=== PATIENT | male | born 1960 | race Caucasian/White ===

== ENCOUNTER → 2021-01-31 10:29 | Outpatient (CLI) | payer BC, SELFPAY ==
--- NOTE | ~2021-01-31 | MR_ITS ---
EXAMINATION: MR shoulder RT wo con DATE: 01/31/2021 12:05 INDICATION: Right shoulder pain TECHNIQUE: Magnetic resonance imaging (MRI) of the right shoulder was performed without intravenous c ontrast. Sequences included axial PD-weighted FS FSE, coronal oblique PD-weighted FS FSE, coronal obl ique T2-weighted FS FSE, sagittal PD-weighted FS FSE, and sagittal T1-weighted SE. COMPARISON: None. FINDINGS: Coracoacromial arch: The acromion undersurface is flat in morphology (type I) with small anterior subacromial spur at the acromial insertion of the otherwise normal coracoacromial ligament. Moderate acromioclavicular osteoa rthritis. Rotator cuff: Severe supraspinatus and anterior infraspinatus tendinopathy. There is a full-thickness tear involvin g the entire supraspinatus tendon and anterior half of the infraspinatus tendon which occurs at the c ritical zone approximately 1-1.5 cm from the greater tuberosity footplate. There is fraying of the te ndon which remains attached to the greater tuberosity. There is severe tendinopathy extending 3 cm me dially from the medial tear margin which is retracted approximately 1.5 cm near the level of the apex of the humeral head. The teres minor tendon is normal. Moderate subscapularis tendinopathy. There is partial thickness intrasubstance tear involving the lateral third of the lesser tuberosity footplate which propagates an additional 1 cm medially along a split tear between the deeper articular side of the tendon and the intact bursal side of the tendon which remains contiguous with the intact transve rse humeral ligament. There is mild feathery muscular edema within the infraspinatus muscle belly, mi nimally in the supraspinatus muscle belly without significant fatty atrophy suggesting the rotator cu ff tear is relatively recent. Biceps tendon, glenoid labrum and glenohumeral cartilage: Mild tendinopathy without discrete tear at the junction of the intra-articular and extra articular po rtions of the long head biceps tendon which is subluxed across the medial rim of the intertubercular groove and into the subscapularis tendon split tear defect. Small tear at the 10:30-11:30 position of the posterior superior glenoid labrum. Glenohumeral cartilage is normal. Fluid: Small glenohumeral joint effusion which extends to the full-thickness rotator cuff tear into the suba cromial/subdeltoid bursa. No loose osteochondral bodies. Bones: Normal marrow signal with no edema, fracture or abnormal marrow replacing process. IMPRESSION: 1. Severe tendinopathy and full-thickness tear at the critical zone involving the entire supraspinatu s and anterior half of the infraspinatus tendons. 2. Moderate tendinopathy and partial thickness tear involving the lateral aspect of the lesser tubero sity insertion of the subscapularis tendon which extends additional 1 cm medially as an intrasubstanc e split tear. 3. Mild tendinopathy without discrete tear of the long head biceps tendon which is medially subluxed in the intertubercular groove into the subscapularis tendon tear defect. 4. Small tear at the posterior superior glenoid labrum. 5. Moderate acromioclavicular osteoarthritis. Reviewed, dictated and finalized at location A. IMPRESSION: 1. Severe tendinopathy and full-thickness tear at the critical zone involving t he entire supraspinatus and anterior half of the infraspinatus tendons. 2. Moderate tendinopathy and partial thickness tear involving the lateral aspec t of the lesser tuberosity insertion of the subscapularis tendon which extends additional 1 cm medially as an intrasubstance split tear. 3. Mild tendinopathy without discrete tear of the long head biceps tendon which is medially subluxed in the intertubercular groove
== END ==
PROVIDERS: PCP Nurse Practitioner; Visit Provider Nurse Practitioner Adult Health
DX: M19.011 Primary osteoarthritis, right shoulder (principal); S43.431A Superior glenoid labrum lesion of right shoulder, initial encounter; X58.XXXA Exposure to other specified factors, initial encounter
CPT/HCPCS: 73221

== ENCOUNTER 2023-08-09 15:07 | Emergency (ER) | payer OTHER, BC, SELFPAY ==
--- NOTE | ~2023-08-09 | XR_ITS ---
EXAMINATION: XR shoulder RT min 2V DATE: 08/09/2023 15:51 INDICATION: Right shoulder injury and pain. TECHNIQUE: 4 views of right shoulder were obtained. COMPARISON: None. FINDINGS: Bone alignment is normal. No fracture. There is mild osteoarthritis of glenohumeral joint a nd acromioclavicular joint. IMPRESSION: 1. Polyarticular osteoarthritis. Reviewed, dictated and finalized at location A.
--- NOTE | ~2023-08-09 | XR_ITS ---
EXAMINATION: XR knee RT min 4V DATE: 08/09/2023 15:51 INDICATION: Right knee injury and pain. TECHNIQUE: 4 views of right knee were obtained. COMPARISON: None. FINDINGS: Bone alignment is normal. No fracture. There is chondrocalcinosis of the menisci. There is mild tricompartmental osteoarthritis. There is a small knee joint effusion. IMPRESSION: 1. Mild right knee osteoarthritis. 2. Small right knee joint effusion. Reviewed, dictated and finalized at location A.
[2023-08-09 15:09] VITALS: BP 150/69; PULSE 66; RESP 18; TEMP 36.2; O2SAT 98
--- NOTE | 2023-08-09 17:27 | ED.FALL ---
HPI - Fall General Chief Complaint: Fall Stated Complaint: fall, right knee, shoulder back pain Time Seen by Provider: 08/09/23 17:09 Source: patient Mode of arrival: ambulatory Limitations: no limitations History of Present Illness HPI Narrative: Patient presents to the emergency department after a fall this morning with right knee and right shoulder pain. Reports he slipped and fell down about 5 steps. He did not hit his head or lose consciousness. Since he has had right shoulder and right knee pain. He also sustained a skin tear to the right forearm. He is up-to-date on his tetanus vaccination. Denies decreased range of motion, numbness, or weakness. Related Data Allergies Allergy/AdvReac Type Severity Reaction Status Date / Time No Known Allergies Allergy Verified 08/09/23 15:41 Review of Systems Review of Systems: CONSTITUTIONAL: Denies fever SKIN: Reports skin tear MUSCULOSKELETAL: Reports joint pain, and myalgia. NEUROLOGIC: Denies numbness, or weakness. All systems reviewed & are unremarkable except as noted in HPI and below PMFSH Past Medical History Medical History (Updated 08/09/23 @ 17:34 by Shanita Ken PA-C) History of diabetes mellitus History of gastroesophageal reflux (GERD) History of hyperlipidemia History of hypertension History of hypothyroidism Social History Social History (Updated 08/09/23 @ 17:33 by Shanita Ken PA-C) Smoking status: Former smoker Exam Narrative: GENERAL: Well-appearing, well-nourished, and in no acute distress. HEAD: Normocephalic, atraumatic. EYES: EOMI. CHEST: Clear to auscultation. No respiratory distress. No wheezes rales or rhonchi HEART: Regular rate and rhythm. No murmur heard. Normal peripheral pulses. BACK: No midline spinal tenderness EXTREMITIES: Normal range of motion. Mild edema about the right knee anteriorly. Normal DP and radial pulses. No obvious deformities SKIN: Warm, dry, no rash. NEURO: No focal deficits. Alert and oriented x3. PSYCH: Normal mood and affect Course Course Emergency Course: Patient agrees with plan of care Vital Signs Vital signs: Vital Signs Temperature 97.1 F L 08/09/23 15:09 Pulse Rate 66 08/09/23 15:09 Respiratory Rate 18 08/09/23 15:09 Blood Pressure 150/69 H 08/09/23 15:09 Pulse Oximetry 98 08/09/23 15:09 Oxygen Delivery Room Air 08/09/23 15:09 Temperature 97.1 F L 08/09/23 15:09 Pulse Rate 66 08/09/23 15:09 Respiratory Rate 18 08/09/23 15:09 Blood Pressure 150/69 H 08/09/23 15:09 Pulse Oximetry 98 08/09/23 15:09 Oxygen Delivery Room Air 08/09/23 15:09 Procedures Laceration Laceration 1: Date: 08/09/23 Time: 17:30 Site: upper extremity Side (If applicable): right Depth: simple, single layer Pre-repair: irrigated ====== Skin Level ====== ====== Subcutaneous Layer ====== ====== Muscle Layer ====== ====== Tendon Layer ====== Dressing: Skin tear cleansed and covered with antibiotic ointment and a bandage Orthopedic Splinting/Casting Injury #1: Splinting/Casting Date: 08/09/23 Splinting/Casting Time: 17:30 Side: right Lower Extremity Injury Location: knee Lower Extremity Immobilizer: knee immobilizer Splint: prefabricated Pre-Formed: knee immobilizer Pre-Procedure Neuro Vascular Exam: normal Post-Procedure Neuro Vascular Exam: normal Other Orthopedic Equipment: crutches MDM - Fall MDM Narrative Medical decision making narrative: Patient presents to the emergency department after a fall down a couple of steps with right knee and right shoulder pain. He did not hit his head or lose consciousness. He is neurologically intact. Also had a skin tear to the right forearm which was cleansed and covered with antibiotic ointment and a bandage. He reports he is up-to-date on his tetanus vaccination. Right shoulder
[2023-08-09 17:45] VITALS: PULSE 84; RESP 18; O2SAT 97
[2023-08-09 17:46] VITALS: BP 148/74
== END 2023-08-09 17:58 | disposition home or self-care (01) ==
LOC: ANHED 17:53
PROVIDERS: Emergency Provider Physician Assistant; PCP Nurse Practitioner
DX: S83.91XA Sprain of unspecified site of right knee, initial encounter (principal); S41.011A Laceration without foreign body of right shoulder, initial encounter; W10.9XXA Fall (on) (from) unspecified stairs and steps, initial encounter; E78.5 Hyperlipidemia, unspecified; I10 Essential (primary) hypertension; E03.9 Hypothyroidism, unspecified; E11.9 Type 2 diabetes mellitus without complications; K21.9 Gastro-esophageal reflux disease without esophagitis
CPT/HCPCS: 73030; 73564; 99284